=== PATIENT | female | born 1955 | race Caucasian/White ===

== ENCOUNTER 2022-09-12 12:32 | Outpatient (REF) | payer MEDICARE, OTHER, SELFPAY ==
[2022-09-12 13:59] LABS: HCT 50.2 % (36.0-46.0); HGB 16.5 g/dL (11.2-15.7); MCH 29.8 pg (27.0-33.0); MCHC 32.9 % (32.0-36.0); MCV 91 fL (80-95); MPV 9.6 fL (8.0-11.0); Platelet Count 297 10^3/uL (130-400); RBC 5.53 10^6/uL (3.93-5.22); RDW 12.4 % (11.7-14.6); RDW-SD 41.1 fL
[2022-09-12 14:32] LABS: ALT 51 U/L (14-59); AST 27 U/L (15-37); Albumin 4.4 g/dL (3.4-5.0); Alkaline Phosphatase 134 U/L (46-116); Anion Gap 6.5 mmol/L (3-11); BUN 16 mg/dL (7-18); Bilirubin, Total 0.5 mg/dL (0.2-1.0); CO2 31.5 mmol/L (21.0-32.0); CREATININE 0.8 mg/dL (0.55-1.02); Calcium 10.2 mg/dL (8.5-10.1); Calculated LDL 176 mg/dL (<100); Chloride 103 mmol/L (98-107); Cholesterol 271 mg/dL (<200); Estimated GFR 80.71 (mL/min/1.73m2); Glucose 96 mg/dL (74-106); HDL Cholesterol 61 mg/dL (40-60); Potassium 4.6 mmol/L (3.5-5.1); Sodium 141 mmol/L (136-145); TSH (W/Ref FT4) 2.52 uIU/mL (0.36-3.74); Total Protein 7.9 g/dL (6.4-8.2); Triglyceride 171 mg/dL (<150)
[2022-09-12 14:48] LABS: Vitamin D 25 Total 31.7 ng/mL (30-100)
[2022-09-15 19:31] LABS: Erythropoietin 7.6 mIU/mL (2.6 - 18.5)
== END 2022-09-12 12:33 | disposition home or self-care (01) ==
LOC: NCHCN 12:32
PROVIDERS: Visit Provider Family Medicine
DX: E03.9 Hypothyroidism, unspecified (principal); R78.89 Finding of other specified substances, not normally found in blood; G47.00 Insomnia, unspecified; M81.0 Age-related osteoporosis without current pathological fracture; D75.1 Secondary polycythemia
CPT/HCPCS: 80053; 80061; 82306; 82668; 85027; 84443

== ENCOUNTER 2022-09-26 09:15 | Outpatient (RCR) | payer MEDICARE, OTHER, SELFPAY ==
[2022-09-26 09:58] LABS: Alkaline Phosphatase 124 U/L (46-116); GGT 20 U/L (5-55)
[2022-10-01 11:51] LABS: JAK2 Result see interpretation
== END 2022-10-21 23:59 | disposition home or self-care (01) ==
LOC: INF 09:15
PROVIDERS: PCP Family Medicine; Visit Provider Family Medicine
DX: D75.1 Secondary polycythemia (principal); R74.8 Abnormal levels of other serum enzymes
CPT/HCPCS: 36415; 81270; 82977; 84075

== ENCOUNTER 2023-03-16 15:53 | Outpatient (REF) | payer MEDICARE, OTHER, SELFPAY ==
[2023-03-16 16:01] LABS: HCT 48.6 % (36.0-46.0); HGB 16.1 g/dL (11.2-15.7); MCH 30.1 pg (27.0-33.0); MCHC 33.1 % (32.0-36.0); MCV 91 fL (80-95); MPV 9.9 fL (8.0-11.0); Platelet Count 267 10^3/uL (130-400); RBC 5.35 10^6/uL (3.93-5.22); RDW 12.3 % (11.7-14.6)
[2023-03-16 17:12] LABS: Alkaline Phosphatase 118 U/L (46-116); Calculated LDL 176 mg/dL (<100); Cholesterol 249 mg/dL (<200); HDL Cholesterol 52 mg/dL (40-60); Triglyceride 109 mg/dL (<150)
== END 2023-03-16 15:54 | disposition home or self-care (01) ==
LOC: NCHCN 15:53
PROVIDERS: PCP Family Medicine; Visit Provider Family Medicine
DX: E78.00 Pure hypercholesterolemia, unspecified (principal); R74.8 Abnormal levels of other serum enzymes; R53.83 Other fatigue
CPT/HCPCS: 80061; 85027; 84075

== ENCOUNTER 2023-09-24 15:57 | Outpatient (REF) | payer MEDICARE, OTHER, SELFPAY ==
[2023-09-24 21:08] LABS: HCT 45.9 % (36.0-46.0); HGB 15.4 g/dL (11.2-15.7); MCHC 33.6 % (32.0-36.0); MCV 90 fL (80-95); MPV 9.6 fL (8.0-11.0); Platelet Count 232 10^3/uL (130-400); RBC 5.13 10^6/uL (3.93-5.22); RDW 12.5 % (11.7-14.6); RDW-SD 41.6 fL; WBC 6.68 10^3/uL (4.4-10.8)
[2023-09-24 21:37] LABS: Calculated LDL 71 mg/dL (<100); Cholesterol 171 mg/dL (<200); HDL Cholesterol 73 mg/dL (40-60); TSH (W/Ref FT4) 1.59 uIU/mL (0.36-3.74); Triglyceride 137 mg/dL (<150)
== END 2023-09-24 15:58 | disposition home or self-care (01) ==
LOC: NCHCN 15:57
PROVIDERS: PCP Family Medicine; Visit Provider Family Medicine
DX: E78.00 Pure hypercholesterolemia, unspecified (principal); E03.9 Hypothyroidism, unspecified; D75.1 Secondary polycythemia
CPT/HCPCS: 80061; 85027; 84443

== ENCOUNTER 2024-10-27 20:10 | Outpatient (REF) | payer MEDICARE, OTHER, SELFPAY ==
[2024-10-27 20:40] LABS: HCT 46.7 % (36.0-46.0); HGB 15.7 g/dL (11.2-15.7); MCH 30.5 pg (27.0-33.0); MCHC 33.6 % (32.0-36.0); MCV 91 fL (80-95); MPV 9.5 fL (8.0-11.0); Platelet Count 239 10^3/uL (130-400); RBC 5.15 10^6/uL (3.93-5.22); RDW 12.3 % (11.7-14.6); RDW-SD 40.6 fL; WBC 7.16 10^3/uL (4.4-10.8)
[2024-10-27 21:15] LABS: Anion Gap 8.7 mmol/L (3-11); BUN 19 mg/dL (7-18); CO2 26.3 mmol/L (21.0-32.0); CREATININE 0.8 mg/dL (0.55-1.02); Calcium 9.7 mg/dL (8.5-10.1); Chloride 109 mmol/L (98-107); Estimated GFR 79.71 (mL/min/1.73m2); Glucose 84 mg/dL (74-106); Potassium 4.1 mmol/L (3.5-5.1); Sodium 144 mmol/L (136-145); TSH (W/Ref FT4) 1.31 uIU/mL (0.36-3.74); Vitamin D 25 Total 67 ng/mL (30-100)
== END 2024-10-27 20:11 | disposition home or self-care (01) ==
LOC: NCHCN 20:10
PROVIDERS: PCP Family Medicine; Visit Provider Family Medicine
DX: E03.9 Hypothyroidism, unspecified (principal); M81.0 Age-related osteoporosis without current pathological fracture
CPT/HCPCS: 80048; 82306; 85027; 84443

== ENCOUNTER 2025-02-17 17:56 | Outpatient (CLI) | payer MEDICARE, OTHER, SELFPAY ==
--- NOTE | 2025-02-17 18:51 | DI.RAD_ITS ---
Exam(s) XR RIBS LT PA CHEST 3V CLINICAL HISTORY Rib pain on left side RO7.81 pleurodynia. COMPARISON: No exams were available for comparison TECHNIQUE:: PA and lateral views of the chest and four views of the left ribs were performed. FINDINGS: LUNGS: Clear. No pleural abnormality seen. HEART: Normal. MEDIASTINUM: Normal. BONES: No displaced rib fracture is seen. No compression fractures are seen in the thoracic spine. No bony destructive lesion is seen. OTHER FINDINGS: None. IMPRESSION: 1. Unremarkable radiographic appearance of the left ribs. 2. No acute pulmonary findings. The preliminary [facility] report was reviewed.
--- NOTE | 2025-02-17 19:31 | DI.[facility]_ITS ---
PROCEDURE INFORMATION: Exam: XR Left Ribs with PA Chest Exam date and time: 02/17/2025 6:40 PM Age: 69 years old Clinical indication: Rib pain on left side, pleurodynia TECHNIQUE: Imaging protocol: Radiologic exam of the left ribs with PA chest. Views: 3 views COMPARISON: No relevant prior studies available. FINDINGS: Lungs: No consolidation. Pleural spaces: No pleural effusion. No pneumothorax. Heart/Mediastinum: No cardiomegaly. Bones/joints: No acute fracture with attention to the left-sided ribs. IMPRESSION: No acute fracture with attention to the left-sided ribs. Dictated and Authenticated by: Deanne Coyle MD. Orderin Adan Coburn MD
== END 2025-02-17 18:16 ==
PROVIDERS: PCP Family Medicine; Visit Provider Physician Assistant Medical
DX: R07.81 Pleurodynia (principal)
CPT/HCPCS: 71101